=== PATIENT | female | born 2000 | race Two or more races ===

== ENCOUNTER 2021-12-06 14:08 | Outpatient (RCR) | payer OTHER, SELFPAY ==
[2021-12-06 16:01] LABS: Hematocrit 39.1 % (37.0-47.0)
[2021-12-06 16:11] LABS: Glucose 1 Hour PP 50gm Dose 206 mg/dL
[2021-12-06 16:51] LABS: HIV 1/2 Ab P24 Ag Result Negative (Negative)
[2021-12-06] MEDS: RHO(D) IMMUNE GLOBULIN 300 MCG/2 ML SYRINGE IM (17:26)
[2021-12-07 06:32] LABS: Rapid Plasma Reagin Non-Reactive (NonReactive)
== END 2022-03-06 23:59 | disposition home or self-care (01) ==
LOC: ANHLAB 14:08
PROVIDERS: Visit Provider Obstetrics & Gynecology
DX: Z11.4 Encounter for screening for human immunodeficiency virus [HIV] (principal); Z29.13 Encounter for prophylactic Rho(D) immune globulin; O36.0130 Maternal care for anti-D [Rh] antibodies, third trimester, not applicable or unspecified; Z3A.00 Weeks of gestation of pregnancy not specified
CPT/HCPCS: 36415; 82947; 85014; 85018; 85461; 86592; 86703; 90384; 96372; G0432; J2790

== ENCOUNTER 2022-01-29 15:04 | Outpatient (CLI) | payer OTHER, SELFPAY ==
[2022-01-29 15:47] VITALS: BP 135/70; PULSE 69
[2022-01-29 15:50] LABS: Basophils Percent Auto 0.3 % (0.2-1.2); Eosinophils Absolute Auto 0.1 K/mm3 (0-0.3); Hematocrit 39.5 % (37.0-47.0); Hemoglobin 13.1 g/dL (12.0-15.0); Immature Granulocyte Absolute 0.04 K/mm3 (0.00-0.031); Immature Granulocyte Percent A 0.4 % (0-0.5); Lymphocytes Absolute Auto 2.55 K/mm3 (0.9-3.2); Lymphocytes Percent Auto 24.3 % (18.3-44.2); Mean Corpuscular HGB Conc 33.2 g/dl (32-36); Mean Corpuscular Hemoglobin 29.8 pg (26-34); Mean Corpuscular Volume 89.8 fl (80-100); Mean Platelet Volume 9.8 fl (7.4-10.4); Monocytes Absolute Auto 0.7 K/mm3 (0.1-0.6); Monocytes Percent Auto 6.7 % (2.6-8.5); Neutrophils Absolute Auto 7.1 K/mm3 (1.3-6.7); Neutrophils Percent Auto 67.3 % (45.5-73.1); Platelet Count Result 346 k/mm3 (150-375); Red Cell Distribution Width 13.6 % (11.5-14.5); White Blood Count 10.5 K/mm3 (4.5-10.0)
[2022-01-29 16:01] VITALS: BP 126/92; PULSE 80
[2022-01-29 16:02] LABS: Alanine Aminotransferase 19 U/L (4-35); Albumin Level 3.7 g/dL (3.5-5.1); Alkaline Phosphatase 227 U/L (38-126); Anion Gap 7 mmol/L (8-16); Aspartate Amino Transferase 28 U/L (14-36); Bilirubin,Total 0.3 mg/dL (0.2-1.3); Blood Urea Nitrogen 9 mg/dL (7-17); Calcium 8.9 mg/dL (8.4-10.2); Carbon Dioxide 20 mmol/L (22-30); Chloride 106 mmol/L (98-107); Estimated Glomerular Filt Rate > 60; Glucose 117 mg/dL (65-110); Sodium 133 mmol/L (137-145); Uric Acid 4.5 mg/dL (2.5-7.5)
[2022-01-29 16:16] VITALS: BP 132/111; PULSE 76
[2022-01-29 16:31] VITALS: BP 136/90; PULSE 81
[2022-01-29 16:31] LABS: Add Urine Microscopic? NO; Appearance Urine Clear (Clear); Bilirubin Urine Negative (Negative); Blood Urine Negative (Negative); Color Urine Yellow (Yellow); Glucose Urine UA Negative (Negative); Ketones Urine Negative (Negative); Leukocyte Esterase Ur Negative LEU/UL (NEGATIVE); Nitrate Urine Negative (Negative); Protein Urine Negative (Negative); Specific Grav Ur 1.011 (1.001-1.035); Urobilinogen Urine Negative mg/dL (<2.0)
--- NOTE | 2022-01-29 16:36 | PC.NURSE ---
4054- Spoke with Sofya Bryant, ERASTO, Rom plus negative, reactive NST. orders to discharge to home.
[2022-01-29 16:42] LABS: Creatinine Urine 47.7 mg/dL; Total Protein Urine Random 9 mg/dL; Ur Ttl Prot Creatinine Ratio 0.19 mg/mg (0-0.20)
--- NOTE | 2022-01-29 16:42 | PC.NURSE ---
1630- SPoke with Sofya Bryant CNM, BP's and labs reviewed. Orders to discharge to home and follow up on .
== END 2022-01-29 16:38 | disposition home or self-care (01) ==
LOC: ANHOBOP 15:11 → ANHLDR 15:14
PROVIDERS: Visit Provider Advanced Practice Midwife
DX: O13.9 Gestational [pregnancy-induced] hypertension without significant proteinuria, unspecified trimester (principal); Z3A.00 Weeks of gestation of pregnancy not specified
CPT/HCPCS: 36415; 80053; 81003; 82570; 84156; 84550; 85025; 87077; 87086; 87088; 99199

== ENCOUNTER 2022-02-05 17:05 | Inpatient (IN) | payer OTHER, SELFPAY ==
[2022-02-05] VITALS (28 sets, daily range): BP systolic 93–139; BP diastolic 40–89; PULSE 67–100; RESP 18; TEMP 36.6–36.8; O2SAT 96–100; BMI 45.1
--- OUTSIDE RECORDS SUMMARY | 2022-02-05 17:11 | XMS_ITS | Encounter Summary ---
:2000 Author Reason for Visit NST [id number] EDC 02/25/2022 LMP 05/21/2021 Assessment and Plan 1. Gestational diabetes mellitus , class A>1< ? non-stress test Discussion Note: None recorded.Patient educational handouts: No information available. Plan of Care Reminders Provider Appointments Nst 02/08/2022 Nst, , EQ UIP 1:15PM ? Nst 02/12/2022 Nst, , EQUI P 1:15PM ? Ob Routine 02/12/2022 Selina Th erese 1:45PM MD Divine ? Nst 02/15/2022 Nst, , EQUI P 1:15PM ? Nst 02/19/2022 Nst, , EQUI P 1:15PM ? Ob Routine 02/19/2022 Shonda Bryant, 1:45PM CNM ? Nst 02/22/2022 Nst, , EQUI P 1:15PM ? Ob Routine 02/26/2022 Jenna Eubanks 1:45PM MD Nela ? Nst 02/26/2022 Nst, , EQUI P 1:15PM ? Nst 03/01/2022 Nst, , EQUI P 1:15PM ? 3Hr on or around RN Michelle elmore RN Glucose 04/02/2022 Lab None ? ? recorded. Referral None ? ? recorded. Procedures None ? ? recorded. Surgeries None ? ? recorded. Imaging
--- OUTSIDE RECORDS SUMMARY | 2022-02-05 17:11 | XMS_ITS | Encounter Summary ---
:2000 Author Reason for Visit NST [id number] EDC 02/25/2022 LMP 05/21/2021 Assessment and Plan [...]
--- OUTSIDE RECORDS SUMMARY | 2022-02-05 17:11 | XMS_ITS | Encounter Summary ---
:2000 Author Reason for Visit None recorded. Assessment and Plan 1. Gestational diabetes mellitus , class A>1< Pt here for diet teaching. Kayli t over ideal ranges for FBS and pp BS. Went over carb counting and carb ranges for e ach meal/snack. Gave ideas for foods to eat for meals/snacks. Discussed drink option s and to avoid soda and juice. Pt said she has cut out juice and soda, but has now been drinking lots of 2% milk and water. Discussed carbs in milk and to limit int tiffany of this and would have to count milk with total carbs for meals/snack. Told pt she can go online to ADA for meal options or to look up low carb meal recipes online for ideas as well. Pt has been checking sugars for a couple weeks. Some fastings high. Most pp BS are normal. Pt was started on prednisone r/t [place] Palsy on 12/19 and s ome fasting BS are really high but could be r/t this. Told pt to continue checking B S QID and adjusting diet to follow low carb diet to try to keep BS within normal ran ge. Reviewed sugars with KP and to wait until appt next week to review sugars to see i f insulin is needed. Pts sleep/wake cycle is a little erratic. Pt states she is tired a lot and sleeps a lot and at different times. Pt doesn't work right now so she goes to bed around 0500 - 0600 and then wakes up around 1500. Explained how/when to ch aileen sugars if she plans on keeping this as her normal schd. Pt aware if sugars aren 't controlled by diet we would discuss starting insulin. Went over NST schedule with pt and importance of keeping these appts and checking BS for her and baby's health. Pts questions were answered and pt verbalized understanding. [email or web address] palacio ? non-stress test Discussion Note: None recorded.Patient educational handouts: No information available. Plan of Care Reminders Provider
--- OUTSIDE RECORDS SUMMARY | 2022-02-05 17:11 | XMS_ITS | Encounter Summary ---
:2000 Author Reason for Visit OB visit 34w1d Assessment and Plan 1. Routine care 2. Gestational diabetes mellitus Discussion Note: None recorded.Patient educational handouts: No information available. Plan of Care Reminders Provider Appointments Nst 02/08/2022 Nst, , EQ UIP 1:15PM ? Nst 02/12/2022 Nst, , EQUI P 1:15PM ? Ob Routine 02/12/2022 Selina Arevalo erese 1:45PM MD Divine ? Nst 02/15/2022 [...] P 1:15PM ? 3Hr on or around KIERRA elmore RN Glucose 04/02/2022 Lab None ? ? recorded. Referral None ? ? recorded. Procedures None ? ? recorded. Surgeries None ? ? recorded. Irene
--- OUTSIDE RECORDS SUMMARY | 2022-02-05 17:11 | XMS_ITS | Encounter Summary ---
:2000 Author Reason for Visit OB visit 33w1d Assessment and Plan 1. Routine care 2. -induced hypertensio n ? CBC w/ auto diff ? CMP, serum or plasma ? uric acid, serum or plasma Discussion Note: None recorded.Patient educational handouts: No information available. Plan of Care Reminders Provider Appointments Nst 02/08/2022 Nst, , EQ UIP 1:15PM ? Nst 02/12/2022 Nst, , EQUI P 1:15PM ? Ob Routine 02/12/2022 Selina Th erese 1:45PM MD Divine ? Nst 02/15/2022 Nst, , EQUI P 1:15PM ? Nst 02/19/2022 Nst, , EQUI P 1:15PM ? Ob Routine 02/19/2022 Sohnda Bryant, 1:45PM CNM ? Nst 02/22/2022 Nst, , EQUI P 1:15PM ? Ob Routine 02/26/2022 Jenna Eubanks 1:45PM MD Nela ? Nst 02/26/2022 Nst, , EQUI P 1:15PM ? Nst 03/01/2022 Nst, , EQUI P 1:15PM ? 3Hr on or around KIERRA elmore RN Glucose 04/02/2022 Lab CBC W/ 01/08/2022 [facility] Auto Diff [facility] (Lab) ? CMP, Serum 01/08/2022 Marylou Razo
--- OUTSIDE RECORDS SUMMARY | 2022-02-05 17:11 | XMS_ITS | Encounter Summary ---
:2000 Author Reason for Visit NST [id number] EDC 02/25/2022 LMP 05/21/2021 Assessment and Plan [...]
--- OUTSIDE RECORDS SUMMARY | 2022-02-05 17:11 | XMS_ITS ---
:2000 Author Care Team Providers Name Role Phone Shonda Bryant Primary Care Provider Unavailable Allergies Code Code System Name Reaction Severity Status Onset NKDA ? Medications Name Status Start Date Stop Date ? ? azithromycin 500 mg tablet Completed ? 09/13 TAKE 2 TABLETS BY MOUTH 1 TIME BD Alcohol Swabs Active ? Not available USE TO TEST FOUR TIMES DAILY OneTouch Delica Plus Lancet 33 gauge Active ? Not available USE TO TEST FOUR TIMES DAILY OneTouch Ultra Test strips Active ? Not a vailable OneTouch Ultra2 Meter Active ? Not availa ble TEST FOUR TIMES DAILY prednisone 20 mg tablet Active ? Not avai lable Active ? Not available valacyclovir 1 gram tablet Active ? Not a vailable TAKE 1 TABLET BY MOUTH EVERY 8 HOURS Problems Name Status Onset Date Source ? Chlamydial Infection Active 08/31/2021 ? Active 09/13/2021 ? Gestational Diabetes Mellitus Active 12/08/2021 ? 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 ? Rubella Non-immune Active ? ? Procedures Date Name Performed by ? 08/31/2021 , [facility] [address] [place] [address] [address])
--- OUTSIDE RECORDS SUMMARY | 2022-02-05 17:11 | XMS_ITS | Encounter Summary ---
[...] recorded. Surgeries None ? ? recorded. Imaging Non-stress 12/27
--- OUTSIDE RECORDS SUMMARY | 2022-02-05 17:11 | XMS_ITS | Encounter Summary ---
:2000 Author Reason for Visit NST [id number] EDC 03/24/2022 LMP 05/21/2021 Assessment and Plan 1. Maternal obesity complicating , childbirth and the puerperium, antepartum ? non-stress test Discussion Note: None recorded.Patient educational handouts: No information available. Plan of Care Reminders Provider Appointments Nst 02/08/2022 Nst, , EQ UIP 1:15PM ? Nst 02/12/2022 Nst, , EQUI P 1:15PM ? Ob Routine 02/12/2022 Selina Mickey erese 1:45PM MD [facility] ? Nst 02/15/2022 [...]
--- OUTSIDE RECORDS SUMMARY | 2022-02-05 17:11 | XMS_ITS | Encounter Summary ---
:2000 Author Reason for Visit OB visit Assessment and Plan 1. Kinney's palsy 2. Gestational diabetes mellitus Discussion Note: None recorded.Patient educational handouts: No information available. Plan of Care Reminders Provider Appointments Nst 02/08/2022 Nst, , EQ UIP 1:15PM ? Nst 02/12/2022 Nst, , EQUI P 1:15PM ? Ob Routine 02/12/2022 Selina larase 1:45PM MD Divine ? Nst 02/15/2022 Nst, [...] recorded. Surgeries None ? ? recorded. Imaging None ? ?
--- OUTSIDE RECORDS SUMMARY | 2022-02-05 17:11 | XMS_ITS | Encounter Summary ---
:2000 Author Reason for Visit None recorded. Assessment and Plan 1. Gestational diabetes mellitus , class A>1< ? US, obstetric, follow-up Discussion Note: None recorded.Patient educational handouts: No [...] recorded. Surgeries None ? ? recorded. Imaging US, 03
--- OUTSIDE RECORDS SUMMARY | 2022-02-05 17:11 | XMS_ITS ---
:2000 Author Care Team Providers Name Role Phone JEN LUCAS Primary Care Provider [phone] Allergies Code Code System Name Reaction Severity Status Onset NKDA ? Medications Name Status Start Date Stop Date ? ? ibuprofen 400 mg tablet Completed ? 07/07/20 Take 1 tablet every 6 hours by oral route. Nexplanon 68 mg subdermal implant Completed 02/23/2015 07/14/2020 Inject by subcutaneous route. Problems Name Status Onset Date Source ? Obesity Active ? Encounter Procedures Date Name Performed by ? 11/25/2001 Tonsillectomy Information not avai lable Results Lab Results Date Name Specimen Result Interpretation Description Value Range Status Address ? 02/03/2015 CT + NG DNA, ? No observation ? ? ? Touchette PCR, recorded. Regiona l Unspecified (Lab) : [address] ? ? Hcg negative ? ? In-Of fice Test, Urine Order : Internal U se Only DO No t Attach Compendium DO Not Attach
--- OUTSIDE RECORDS SUMMARY | 2022-02-05 17:12 | XMS_ITS | Encounter Summary ---
:2000 Author Reason for Visit OB visit 28w2d Assessment and Plan 1. Routine care Discussion Note: None recorded.Patient educational handouts: No [...] ? ? recorded. Imaging None ? ? record
--- OUTSIDE RECORDS SUMMARY | 2022-02-05 17:12 | XMS_ITS | Encounter Summary ---
:2000 Author Reason for Visit OB visit 32w1d Assessment and Plan 1. Routine care 2. [...] elmore RN Glucose 04/02/2022 Lab CBC W/ 01/01/2022 [facility] Auto Diff [facility] (Lab) ? CMP, Serum 01/01/2022 Marylou Razo
--- OUTSIDE RECORDS SUMMARY | 2022-02-05 17:12 | XMS_ITS | Encounter Summary ---
[...] normal. Pt was started on prednisone r/t [place] Palsy on 12/19 and s ome fasting [...] questions were answered and pt verbalized understanding. KIERRA herndon Discussion Note: None recorded.Patient educational handouts: No information available. Plan of Care Reminders Provider Appointments Nst /
--- OUTSIDE RECORDS SUMMARY | 2022-02-05 17:12 | XMS_ITS | Encounter Summary ---
[...] normal. Pt was started on prednisone r/t [place] Palsy on 12/19 and s ome fasting [...] questions were answered and pt verbalized understanding. [email or web address] palacio ? non-stress test Discussion Note: None recorded.Patient educational handouts: No information available. Plan of Care Reminders Provider
--- OUTSIDE RECORDS SUMMARY | 2022-02-05 17:12 | XMS_ITS | Encounter Summary ---
:2000 Author Reason for Visit None recorded. Assessment and Plan 1. screening ? US, obstetric, follow-up Discussion Note: None [...] Surgeries None ? ? recorded. Imaging US, 11/07/2021 [place]
--- OUTSIDE RECORDS SUMMARY | 2022-02-05 17:12 | XMS_ITS | Encounter Summary ---
[...] normal. Pt was started on prednisone r/t [place] Palsy on 12/19 and s ome fasting [...]
--- OUTSIDE RECORDS SUMMARY | 2022-02-05 17:12 | XMS_ITS | Encounter Summary ---
:2000 Author Reason for Visit OB visit 30w2d Assessment and Plan 1. Routine care 2. Weakness of face muscles Discussion Note: None recorded.Patient educational handouts: No [...]
--- OUTSIDE RECORDS SUMMARY | 2022-02-05 17:12 | XMS_ITS | Encounter Summary ---
:2000 Author Reason for Visit OB visit 24W2D Assessment and Plan 1. Routine care 2. screening ? Rh immune globulin screeni ng - Fax results to [phone] ? type + screen, serum - Fax results to [phone] ? HIV (1+2) Ab screen, serum - Fax results to [phone] ? RPR (rapid plasma reagin), serum - Fax results to [phone] ? hemoglobin + hematocrit, b lood - Fax results to [phone] ? glucose tolerance test, ge stational, 1-hour - Fax results to [phone] Discussion Note: None recorded.Patient educational handouts: No information available. Plan of Care Reminders Provider Appointments Nst 02/08/2022 Nst, , EQ UIP 1:15PM ? Nst 02/12/2022 Nst, , EQUI P 1:15PM ? Ob Routine 02/12/2022 Selina valiente 1:45PM MD [facility] ? Nst 02/15/2022 Nst, , EQUI P 1:15PM ? Nst 02/19/2022 Nst, , EQUI P 1:15PM ? Ob Routine 02/19/2022 Shonda Bryant, 1:45PM CNM ? Nst 02/22/2022 Nst, , EQUI P 1:15PM ? Ob Routine 02/26/2022 Jenna Eubanks 1:45PM MD Nela ? Nst 02/26/2022 Nst, , EQUI P 1:15PM ? Nst 03/01/2022 Nst,
--- OUTSIDE RECORDS SUMMARY | 2022-02-05 17:12 | XMS_ITS | Encounter Summary ---
[...] normal. Pt was started on prednisone r/t [place] Palsy on 12/19 and s ome fasting [...] and pt verbalized understanding. [email or web address] palacio ? US, obstetric, follow-up Discussion Note: None recorded.Patient educational handouts: No information available. Plan of Care Reminders Provider
--- OUTSIDE RECORDS SUMMARY | 2022-02-05 17:12 | XMS_ITS | Encounter Summary ---
:2000 Author Reason for Visit None recorded. Assessment and Plan 1. Large for gestation age fetus ? US, obstetric, follow-up Discussion Note: None [...] Surgeries None ? ? recorded. Imaging US, 12/05/2021
--- NOTE | 2022-02-05 17:56 | LDADM ---
This patient, Syl Andre, was admitted to Labor/Delivery/Recovery 107 on 02/05/22 at 17:05. Plans for labor, pain management and were discussed with patient. Patient/family oriented to hospital policies and general routines including ID bracelet, bed and alarms, visiting hours, pain management, procedures, bathroom and other care routines, personal items, smoking policy, room service/diet and guest tray routines, security routines, and visiting hours. Patient/Family are encouraged to report perceived risks to care and to ask questions if they do not understand what they are told or what they should do. See OBIX for further documentation.
[2022-02-05 18:24] LABS: Glucose Point of Care 100 mg/dl (65-105)
[2022-02-05 18:30] LABS: Basophils Percent Auto 0.3 % (0.2-1.2); Eosinophils Absolute Auto 0.1 K/mm3 (0-0.3); Eosinophils Percent Auto 0.8 % (0-4.4); Hematocrit 40.6 % (37.0-47.0); Hemoglobin 13.6 g/dL (12.0-15.0); Immature Granulocyte Absolute 0.03 K/mm3 (0.00-0.031); Immature Granulocyte Percent A 0.3 % (0-0.5); Lymphocytes Absolute Auto 2.51 K/mm3 (0.9-3.2); Lymphocytes Percent Auto 21.7 % (18.3-44.2); Mean Corpuscular HGB Conc 33.5 g/dl (32-36); Mean Corpuscular Hemoglobin 29.6 pg (26-34); Mean Corpuscular Volume 88.3 fl (80-100); Mean Platelet Volume 9.7 fl (7.4-10.4); Monocytes Absolute Auto 0.7 K/mm3 (0.1-0.6); Monocytes Percent Auto 5.6 % (2.6-8.5); Neutrophils Absolute Auto 8.3 K/mm3 (1.3-6.7); Neutrophils Percent Auto 71.3 % (45.5-73.1); Platelet Count Result 373 k/mm3 (150-375); Red Cell Distribution Width 13.8 % (11.5-14.5); White Blood Count 11.6 K/mm3 (4.5-10.0)
[2022-02-05] MEDS: LACTATED RINGERS 1,000 ML 125 ML IV CONT ×2 (19:00→23:39)
[2022-02-05] MEDS: OXYTOCIN 30 UNITS/NS 500 ML 30 UNITS/500 ML BAG 6 UNITS IV CONT (19:01)
[2022-02-05] MEDS: AMPICILLIN 2 GM/NS 100 ML 2 GM/100 ML BAG IVPB (19:01)
--- NOTE | 2022-02-05 19:40 | WPDOBADMIT ---
Obstetrics - Admit Note Admission Note: record reviewed. No pertinent additions to the history and/or any subsequent changes in the physical findings that are not consistent with the expected course of the were found. MIOL, GDM, GHTN, sve 270/-2 Arom moderate amount of clear odorless fluid Additions to the history and/or subsequent changes in the physical findings follow. None.
--- NOTE | 2022-02-05 19:43 | WPDANESEPP ---
Anes - Eval Pre Procedure Procedure: labor epidural Date/Time: 02/05/22 19:43 Preop Diagnosis: pain during labor Pre Op Diagnosis: Induction of Labor Patient Data Age: 21 Gender: F Height: 1.57 m Weight: 111.8 kg Last Vital Signs Pulse 88 02/05/22 19:31 BP 136/85 02/05/22 19:31 Allergies Allergy/AdvReac Type Severity Reaction Status Date / Time No Known Allergies Allergy Verified 01/29/22 15:40 Laboratory Tests 02/05/22 02/05/22 02/05/22 17:40 17:40 17:40 WBC 11.6 K/mm3 H K/mm3 (4.5-10.0) RBC 4.60 M/mm3 M/mm3 (4.2-5.4) Hgb 13.6 g/dL g/dL (12.0-15.0) Hct 40.6 % % (37.0-47.0) MCV 88.3 fl fl (80-100) MCH 29.6 pg pg (26-34) MCHC 33.5 g/dl g/dl (32-36) RDW 13.8 % % (11.5-14.5) Plt Count 373 k/mm3 k/mm3 (150-375) MPV 9.7 fl fl (7.4-10.4) Immature Gran % (Auto) 0.3 % % (0-0.5) Neut % (Auto) 71.3 % % (45.5-73.1) Lymph % (Auto) 21.7 % % (18.3-44.2) [place] % (Auto) 5.6 % % (2.6-8.5) Eos % (Auto) 0.8 % % (0-4.4) Baso % (Auto) 0.3 % % (0.2-1.2) Lymph # (Auto) 2.51 K/mm3 K/mm3 (0.9-3.2) [place] # (Auto) 0.7 K/mm3 H K/mm3 (0.1-0.6) Eos # (Auto) 0.1 K/mm3 K/mm3 (0-0.3) Baso # (Auto) 0.0 K/mm3 K/mm3 (0.0-0.1) Abs Immat Gran (auto) 0.03 K/mm3 K/mm3 (0.00-0.031) Absolute Neuts (auto) 8.3 K/mm3 H K/mm3 (1.3-6.7) Absolute Nucleated RBC 0.0 K/mm3 K/mm3 (0.0-0.012) Nucleated RBC % 0.0 % % (0.0-0.2) POC Capillary Glucose RPR Pending Blood Type A Negative Antibody Screen Negative 02/05/22 18:17 WBC RBC Hgb Hct MCV MCH MCHC RDW Plt Count MPV Immature Gran % (Auto) Neut % (Auto) Lymph % (Auto) [place] % (Auto) Eos % (Auto) Baso % (Auto) Lymph # (Auto) [place] # (Auto) Eos # (Auto) Baso # (Auto) Abs Immat Gran (auto) Absolute Neuts (auto) Absolute Nucleated RBC Nucleated RBC % POC Capillary Glucose 100 mg/dl mg/dl (65-105) RPR Blood Type Antibody Screen Patient hx anesthesia problems: none Family hx anesthesia problems: none Results Review: All pre-operative results and documents have been reviewed as part of the pre-operative evaluation. [facility], [facility] Past Medical History Medical History (Updated 02/05/22 @ 19:44 by Alyse Carlos CRNA) Kinney's palsy IUP (intrauterine ), incidental Morbid obesity Family History Family History Father Diabetes mellitus Social History Social History Smoking status: Never smoker Substance use: current Last use: last 01/25/22 Spiritual care concerns: No Exam Day of Procedure 02/05/22 19:43
[2022-02-05] MEDS: AMPICILLIN 1 GM/NS 50 ML 1 GM/50 ML BAG IVPB (23:07)
[2022-02-05 23:22] LABS: Glucose Point of Care 84 mg/dl (65-105)
[2022-02-05] MEDS: fentaNYL CITRATE INJ (*CRX) 100 MCG/2 ML VIAL 50 MCG IV PUSH ×2 (23:34→23:37)
[2022-02-06] VITALS (416 sets, daily range): BP systolic 70–181; BP diastolic 30–123; PULSE 16–132; RESP 18; TEMP 36.5–37.4; O2SAT 84–100
[2022-02-06] MEDS: LACTATED RINGERS 1,000 ML 125 ML IV CONT ×7 (01:03→16:11)
[2022-02-06] MEDS: PHENYLEPHRINE 1,000 MCG/10 ML SYRINGE 100 MCG IV PUSH ×3 (03:03→03:40)
[2022-02-06] MEDS: ONDANSETRON INJ 4 MG/2 ML VIAL IV PUSH (03:43)
[2022-02-06] MEDS: SODIUM CHLORIDE 0.9% IV 1,000 ML 150 ML I-UTERINE (03:43)
[2022-02-06] MEDS: AMPICILLIN 1 GM/NS 50 ML 1 GM/50 ML BAG IVPB ×5 (03:57→19:50)
[2022-02-06 04:31] LABS: Glucose Point of Care 94 mg/dl (65-105)
[2022-02-06 08:15] LABS: Glucose Point of Care 98 mg/dl (65-105)
[2022-02-06 08:52] LABS: Rapid Plasma Reagin Non-Reactive (NonReactive)
[2022-02-06 10:07] LABS: Glucose Point of Care 92 mg/dl (65-105)
[2022-02-06 12:10] LABS: Glucose Point of Care 102 mg/dl (65-105)
[2022-02-06 14:24] LABS: Glucose Point of Care 91 mg/dl (65-105)
[2022-02-06 16:20] LABS: Glucose Point of Care 93 mg/dl (65-105)
[2022-02-06 18:51] LABS: Glucose Point of Care 95 mg/dl (65-105)
[2022-02-06 20:52] LABS: Glucose Point of Care 100 mg/dl (65-105)
--- NOTE | 2022-02-06 21:11 | PM.IMHP ---
H&P: HPI History of Present Illness Date/Time: 02/06/22 21:11 21 y.o. at 37.2 weeks gestation, admitted 02/05/22 for medical induction of labor due to diet controlled GDM, and gestational hypertension, and positive GBS. Pt also had bells palsy during . BMI at 44 at initial visit. Pt is currently on pitocin. Chief Complaint: GDM, GHTN, IOL Review of Systems Review of Systems: pt is now resting comfortably with epidural All systems reviewed & are unremarkable except as noted in HPI and below PMFSH Past Medical History Medical History (Updated 02/05/22 @ 19:44 by Alyse Carlos CRNA) Kinney's palsy IUP (intrauterine ), incidental Morbid obesity Family History Family History Father Diabetes mellitus Social History Social History Smoking status: Never smoker Substance use: current Last use: last 01/25/22 Spiritual care concerns: No Meds Home Medications and Allergies Allergies Allergy/AdvReac Type Severity Reaction Status Date / Time No Known Allergies Allergy Verified 01/29/22 15:40 Vital Signs Vital Signs - 24 hr 02/05/22 21:16 02/05/22 21:31 02/05/22 21:46 Temperature Pulse Rate 80 77 95 Respiratory Rate Blood Pressure 126/75 120/70 115/76 Pulse Oximetry 02/05/22 22:01 02/05/22 22:03 02/05/22 22:17 Temperature 36.6 C Pulse Rate 77 78 Respiratory Rate 18 Blood Pressure 93/77 L 100/40 L Pulse Oximetry 02/05/22 22:31 02/05/22 22:57 02/05/22 23:02 Temperature Pulse Rate 80 Respiratory Rate Blood Pressure 119/81 Pulse Oximetry 97 96 02/05/22 23:07 02/05/22 23:12 02/05/22 23:17 Temperature Pulse Rate Respiratory Rate Blood Pressure Pulse Oximetry 100 98 100 02/05/22 23:37 02/05/22 23:44 02/05/22 23:46 Temperature 36.8 C Pulse Rate 75 72 Respiratory Rate 18 Blood Pressure 130/72 121/80 Pulse Oximetry 02/06/22 00:01 02/06/22 00:17 02/06/22 00:31 Temperature Pulse Rate 78 77 74 Respiratory Rate Blood Pressure 136/74 Pulse Oximetry 02/06/22 00:46 02/06/22 01:02 02/06/22 01:03 Temperature 36.6 C Pulse Rate 81 78 Respiratory Rate 18 Blood Pressure 116/66 Pulse Oximetry 02/06/22 01:05 02/06/22 01:06 02/06/22 01:09 Temperature Pulse Rate Respiratory Rate Blood Pressure Pulse Oximetry 100 100 86 L 02/06/22 01:11 02/06/22 01:16 02/06/22 01:21 Temperature Pulse Rate 87 Respiratory Rate Blood Pressure 105/80 Pulse Oximetry 100 100 100 02/06/22 01:26 02/06/22 01:31 02/06/22 01:32 Temperature 36.9 C Pulse Rate 77 Respiratory Rate 18 Blood Pressure 120/80 Pulse Oximetry 100 99 02/06/22 01:35 02/06/22 01:36 02/06/22 01:38 Temperature Pulse Rate 92 86 Respiratory Rate Blood Pressure 76/50 L 113/73 Pulse Oximetry 100 02/06/22 01:40 02/06/22 01:41 02/06/22 01:43 Temperature Pulse Rate 82 100 Respiratory Rate Blood Pressure 122/70 122/63 Pulse Oximetry 100 02/06/22 01:46 02/06/22 01:49 02/06/22 01:51 Temperature Pulse Rate 87 87 Respiratory Rate Blood Pressure 124/68 111/47 L Pulse Oximetry 100 100 02/06/22 01:52 02/06/22 01:53 02/06/22 01:54 Temperature Pulse Rate 81 Respiratory Rate Blood Pressure 98/43 L Pulse Oximetry 93 97 92 02/06/22 01:56 02/06/22 01:58 02/06/22 01:59 Temperature Pulse Rate 75 86 Respiratory Rate Blood Pressure 94/36 L 109/58 L Pulse Oximetry 100 02/06/22 02:01 02/06/22 02:04 02/06/22 02:05 Temperature 36.6 C Pulse Rate 70 86 Respiratory Rate 18 Blood Pressure 127/93 H 98/64 L Pulse Oximetry 100 02/06/22 02:07 02/06/22 02:09 02/06/22 02:11 Temperature Pulse Rate 87 91 Respiratory Rate Blood Pressure 103/50 L 95/30 L Pulse Oximetry 100 02/06/22 02:13 02/06/22 02:14 02/06/22 02:19 Temperature Pulse Rate 8
[2022-02-06] MEDS: miSOPROStol 200 MCG TABLET 1000 MCG RECTAL (23:05)
--- NOTE | 2022-02-06 23:11 | PM.OBPRVD ---
OB - Delivery Note Procedure Delivery date: 02/06/22 Procedure: vaginal delivery Events: Elective Induction of Labor, Gestational Diabetes, Gestational Hypertension and Positive Group B Strep (GBS) Induction method: AROM and Per Pitocin Protocol Delivery augmentation: Rupture of Membranes Delivery monitor: External FHT, External Uterine, Internal FHT and Internal Uterine Route of delivery: Laceration Description: None Specimen: Yes Quantitative Blood Loss (ml): 200 Anesthesia type: Epidural Disposition: Floor Baby Date of : 02/06/22 Time of : 22:58 Weeks of gestation at delivery: 37 gender: Male Weight (pounds): 6 Weight (ounces): 7 presentation: vertex position: Left Occiput Anterior Placenta delivery description: Spontaneous Cord Vessel Description: 3 Vessels and Clamped/Cut score one minute: 7 score five minutes: 7 Narrative: mother and baby in stable condition
[2022-02-06] MEDS: OXYTOCIN 30 UNITS/NS 500 ML 30 UNITS/500 ML BAG 125 UNITS IV CONT (23:19)
[2022-02-07] VITALS (13 sets, daily range): BP systolic 107–154; BP diastolic 65–122; PULSE 77–110; RESP 16–18; TEMP 36.3–36.8; O2SAT 97
[2022-02-07] MEDS: IBUPROFEN 600 MG TABLET PO ×2 (00:25→09:03)
[2022-02-07 05:37] LABS: Hematocrit 32.8 % (37.0-47.0); Hemoglobin 10.9 g/dL (12.0-15.0)
--- NOTE | 2022-02-07 07:30 | PC.NURSE ---
No I&O or Q4 BP's needed on this patient, per Janeth Gaviria CNM.
--- NOTE | 2022-02-07 07:59 | PM.OBPNVD ---
OB - PN: Subj Subjective Date/time seen: 02/07/22 07:59 Patient comments: no complaints baby status: doing well OB - PN: Obj Data Labs CBC & Chem 7: 02/07/22 04:51 Labs: Laboratory Results - last 24 hr 02/05/22 02/06/22 02/06/22 17:40 07:55 10:04 Hgb Hct POC Capillary Glucose 98 92 RPR Non-reactive Blood Type Antibody Screen Screen Baby's Blood Type Baby's PETAR Doses of RhIg Required 02/06/22 02/06/22 02/06/22 12:05 14:21 16:03 Hgb Hct POC Capillary Glucose 102 91 93 RPR Blood Type Antibody Screen Screen Baby's Blood Type Baby's PETAR Doses of RhIg Required 02/06/22 02/06/22 02/07/22 18:34 20:42 04:51 Hgb 10.9 L Hct 32.8 L POC Capillary Glucose 95 100 RPR Blood Type Antibody Screen Screen Baby's Blood Type Baby's PETAR Doses of RhIg Required 02/07/22 04:53 Hgb Hct POC Capillary Glucose RPR Blood Type A Negative Antibody Screen Negative Screen Negative Baby's Blood Type A pos Baby's PETAR Negative Doses of RhIg Required 1 OB - PN A/P Plan day: 1 Plan: routine care Time Spent With Patient Time: Total time spent is greater than 50% in coordination of care (as documented) at patient's floor/unit and/or counseling patient: Review of Systems Review of Systems: All systems reviewed & are unremarkable except as noted in HPI and below Exam Const: General: cooperative, healthy appearing and comfortable
--- NOTE | 2022-02-07 10:50 | WPDANLDPN2 ---
Anes-Prog Note L&D Date/Time: 02/07/22 10:50 Comfortable throughout: labor and delivery Neuraxial method: epidural Epidural/Spinal procedure site: clean & non-tender Neuro status: Neuro function grossly intact. Cardiovascular status: normal Respiratory status: normal Airway patency: baseline Mental status: baseline Post-Op hydration status: normal Vital Signs: Last Vital Signs Temp 36.8 C 02/07/22 07:30 Pulse 87 02/07/22 07:30 Resp 16 02/07/22 07:30 BP 132/85 02/07/22 07:30 Pulse Ox 97 02/07/22 07:30 Pain score (VAS): 12/04 I/O: Intake & Output 02/06/22 02/07/22 02/07/22 23:59 07:59 15:59 Intake Total 1600 Output Total 250 228 Balance 1350 -228 Post-procedural complaints: pruritis severe, treatment refractory Patient feedback: Patient satisfied with anesthetic care.
[2022-02-07] MEDS: RHO(D) IMMUNE GLOBULIN 300 MCG/2 ML SYRINGE IM (13:15)
[2022-02-08 08:15] VITALS: BP 116/68; PULSE 69; RESP 16; TEMP 36.4; O2SAT 100
--- NOTE | 2022-02-08 08:40 | PM.OBDSVD ---
DS: Admitting Diagnosis Discharge Date February 08, 2022 Admitting Diagnosis term DS: Discharge Diagnosis Discharge Diagnosis (1) IUP (intrauterine ), incidental: Code(s): Z33.1 - state, incidental Status: Acute OB - DS: Summary OB Procedures : None OB Procedures Intrapartum: Spontaneous Vag Delivery OB Procedures: : None Time Spent with Patient Time attestation: Total time spent providing and/or coordinating discharge services: DS: Data Data Completed and Pending Pending studies at discharge: Pending at discharge 02/06/22 23:00 Surgical [PTH] Routine Labs on day of discharge: Labs from last 24 hours 02/07/22 04:53 Blood Type A Negative Antibody Screen Negative Screen Negative Baby's Blood Type A pos Baby's PETAR Negative Doses of RhIg Required 1 Discharge Plan Discharge Discharging Clinician: Christiano Rondon Patient Disposition: Home, Self-Care Activity: pelvic rest Diet: regular Discharge Instructions: Met with pt. and FOB this morning to discuss discharge planning. Pt. states that her discharge plan is to return home with her family (mother, step father, and 2 step brothers). FOB does not live in the home but is supportive. Pt. has everything needed to safely bring baby home including a safe place for baby to sleep and a car seat. Pt. will bottle feed baby at time of D/C, she will apply for [facility] now that baby has been delivered. Pt. tested positive for THC in Aug but was not positive for any substances at time of admission. Baby also neg for urine drug screen. Pt. and baby have no D/C needs or concerns at this time. Will follow. Patient Instructions: Antibiotic Form Stand Alone Forms: General Discharge Information Follow-up/Referrals: Christiano Rondon MD [Physician] - Date of admission: 02/05/22 17:05 Primary Care Provider: PHYSICIAN,RESEARCH AND DEVELOPMENT SCIENTIST Admitting Provider: Christiano Rondon Attending physician on admission: Christiano Rondon Condition: Stable
--- NOTE | 2022-02-08 08:42 | PM.OBPNVD ---
OB - PN: Subj Subjective Date/time seen: 02/08/22 08:42 Patient comments: no complaints, pain well controlled and tolerating diet OB - PN: Obj Data Labs CBC & Chem 7: 02/07/22 04:51 Labs: Laboratory Results - last 24 hr 02/07/22 04:53 Blood Type A Negative Antibody Screen Negative Screen Negative Baby's Blood Type A pos Baby's PETAR Negative Doses of RhIg Required 1 OB - PN A/P Plan day: 2 Plan: routine care and discharge home Time Spent With Patient Time: Total time spent is greater than 50% in coordination of care (as documented) at patient's floor/unit and/or counseling patient: Exam Const: General: comfortable and no acute distress Resp: Effort & Inspection: normal respiratory effort Auscultation: no rales, no rhonchi and no wheezes Cardio: Rate: regular rate Heart sounds: no click, no murmurs and no rubs GI: GI Palp: Yes Soft to palpation and No Tenderness to palpation present (GI) Auscultation: normal bowel sounds Extrem: General: normal to inspection, no pedal edema and no calf tenderness
[2022-02-08] MEDS: IBUPROFEN 600 MG TABLET PO (09:43)
[2022-02-08] MEDS: TETANUS,DIPHTHERIA,AC PERTUSSIS ADULT (0.5 ML) BOOSTRIX IM (09:43)
--- NOTE | 2022-02-08 10:19 | PC.NURSE ---
This note was entered in the discharge instructions area of the discharge plan, presumably by care coordination: Met with pt. and FOB this morning to discuss discharge planning. Pt. states that her discharge plan is to return home with her family (mother, step father, and 2 step brothers). FOB does not live in the home but is supportive. Pt. has everything needed to safely bring baby home including a safe place for baby to sleep and a car seat. Pt. will bottle feed baby at time of D/C, she will apply for [facility] now that baby has been delivered. Pt. tested positive for THC in Aug but was not positive for any substances at time of admission. Baby also neg for urine drug screen. Pt. and baby have no D/C needs or concerns at this time. Will follow.
--- NOTE | 2022-02-08 10:35 | PC.NURSE ---
Patient instructed to view the discharge video Mother [facility] Baby [facility], The First Two Weeks . Patient was given the opportunity and encouraged to ask questions. Patient verbalized understanding of information shared and has been given the mother/baby guide for home reference.
[2022-02-09 10:37] VITALS: BP 146/87; PULSE 70; RESP 20; TEMP 37.1; O2SAT 100
== END 2022-02-08 11:19 | disposition home or self-care (01) | DRG 560 ==
LOC: ANHLDR 02-06 12:35 → ANHOB2 02-07 01:36
PROVIDERS: Advanced Practice Midwife; Admitting Provider Obstetrics & Gynecology; Visit Provider Obstetrics & Gynecology
DX: O13.4 Gestational [pregnancy-induced] hypertension without significant proteinuria, complicating childbirth (principal); O99.824 Streptococcus B carrier state complicating childbirth; O42.92 Full-term premature rupture of membranes, unspecified as to length of time between rupture and onset of labor; O76 Abnormality in fetal heart rate and rhythm complicating labor and delivery; O99.214 Obesity complicating childbirth; E66.01 Morbid (severe) obesity due to excess calories; O24.420 Gestational diabetes mellitus in childbirth, diet controlled; Z3A.37 37 weeks gestation of pregnancy; Z37.0 Single live birth
CPT/HCPCS: 36415; 82948; 85014; 85018; 85025; 85461; 86592; 86850; 86900; 86901; 88307; 90384; 90715; A9270; J0290; J2370; J2405; J2590; J2790; J2795; J3010; J7030; J7120